=== PATIENT | male | born 2000 | race Caucasian/White ===

== ENCOUNTER 2024-07-26 08:49 | Emergency (ER) | payer MEDICAID, SELFPAY ==
[2024-07-26 09:01] VITALS: BP 110/62; PULSE 91; RESP 20; TEMP 37.2; O2SAT 96; BMI 20.3
--- NOTE | 2024-07-26 09:06 | XR_ITS ---
Examination: AP chest single view TECHNIQUE: Sitting AP chest single view Date and time: July 26, 2024 0931 hours Comparison 11/26/2016 INDICATIONS: Patient fell today with image of the chest, chest pain FINDINGS: Normal heart size No pneumothorax. Clavicles ribs appear intact IMPRESSION: No pneumothorax pulmonary contusion or hemothorax
--- NOTE | 2024-07-26 09:06 | XR_ITS ---
Examination: CT brain head without contrast. 2-D sagittal coronal reconstructions Date and time of exam:July 26, 2024 0921 hours INDICATIONS: Patient fell today with injury of the head, head pain CTDI: vol (mGy):51.5 DLP: (mGycm):1013 Technique: Multiple CT axial sections of the brain have been obtained, 5 mm slice thickness. Contrast has not been administered. 2-D sagittal, coronal reconstructions have been obtained Low dose protocols were performed. One or more of the following dose reduction techniques were used; automated exposure control, adjustment of the mA and/or KV according to patient size, use of iterative reconstruction technique. Findings: No significant ventricular enlargement. Intra-axial or extra-axial hemorrhage density is not seen. No mass effect or midline shift Basal cisterns are not remarkable. Fourth ventricle is midline. Cranial vault intact. Impression: Negative for acute hemorrhage, mass effect or midline shift
--- NOTE | 2024-07-26 09:06 | XR_ITS ---
Examination: CT lumbar spine, without contrast. 2-D sagittal reconstructions. 2-D coronal reconstructions. 3-D reconstructions. Date and time of exam:July 26, 2024 0922 hours INDICATIONS: Patient fell today with injury to the lower back, lower back pain CTDI: vol (mGy):17.1 DLP: (mGycm):605 Technique: Multiple 1.25 mm axial sections of the lumbar spine without intravenous contrast have been obtained. 2-D sagittal and coronal reconstructions have been obtained. 3-D reconstructions have been obtained. Low dose protocols were performed. One or more of the following dose reduction techniques were used; automated exposure control, adjustment of the mA and/or KV according to patient size, use of iterative reconstruction technique. Findings: Adequate alignment lumbar vertebral bodies Schmorl's node superior endplate L1 No lumbar vertebral body compression fracture No spondylolisthesis Lumbar pedicles, lamina, transverse and posterior spinous processes intact L4-L5 6 mm central right paracentral disc bulge, axial image 92 significantly indenting the thecal sac and displacing the right L5 nerve root IMPRESSION: No acute lumbar fracture L4-L5 6 mm central right paracentral disc bulge significantly indenting the thecal sac and displacing the right L5 nerve root Consider elective MRI lumbar spine without contrast follow-up
--- NOTE | 2024-07-26 09:07 | EKG_ITS ---
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
--- NOTE | 2024-07-26 09:08 | PD.EDRME ---
Rapid Medical Screening Exam RME Arrival date/time: 07/26/24 08:49 24-year-old male with no significant medical problems presents to the emergency department today stating that he was cooking today and all of a sudden collapsed patient reports since then he has been unable to walk Chief Complaint: Back Pain/Injury Vital signs: Vital Signs Temperature 98.9 F 07/26/24 09:01 Pulse Rate 91 07/26/24 09:01 Respiratory Rate 20 07/26/24 09:01 Blood Pressure 110/62 07/26/24 09:01 Pulse Oximetry (%) 96 07/26/24 09:01 Oxygen Delivery Method Room Air 07/26/24 09:01
[2024-07-26] MEDS: HYDROcodone/APAP 5/325 TABLET 1 TAB PO (09:12)
[2024-07-26] MEDS: DIAZEPAM 5 MG TABLET 10 MG PO (09:13)
[2024-07-26 09:44] LABS: Basophils % (Auto) 0 % (0-2.5); Eosinophils # (Auto) 0.1 Thou/mm3 (0.0-0.5); Eosinophils % (Auto) 2 % (0-10); Hematocrit 46.5 % (41.0-53.0); Hemoglobin 15.8 g/dL (13.5-16.0); Immature Granulocytes % (Auto) 1 % (0-0); Immature Granulocytes Auto 0.06 Thou/mm3 (0.00-0.00); Lymphocytes # (Auto) 1.5 Thou/mm3 (1.0-4.8); Lymphocytes % (Auto) 26 % (10-50); Mean Corpuscular Hemoglobin 30.4 pg (25.0-35.0); Mean Corpuscular Volume 89 fL (80-100); Monocytes # (Auto) 0.4 Thou/mm3 (0.0-0.8); Monocytes % (Auto) 8 % (0-12); Neutrophils # (Auto) 3.5 Thou/mm3 (1.8-7.7); Neutrophils % (Auto) 62 % (37-80); Nucleated Red Blood Cell % 0 /100 WBC (0); Platelet Count 307 Thou/mm3 (140-440); RDW Standard Deviation 41.2 fL (35.1-43.9); White Blood Count 5.6 Thou/mm3 (3.8-10.6)
[2024-07-26 10:03] LABS: Sed Rate (ESR) 10 mm/hr (0-15)
[2024-07-26 10:09] LABS: Alanine Aminotransferase 19 U/L (10-49); Albumin, Serum 4.6 gm/dL (3.5-5.0); Albumin/Globulin Ratio 1.8 (1.2-2.2); Alkaline Phosphatase 115 U/L (46-116); Anion Gap 11 (7-16); Aspartate Amino Transferase 15 U/L (0-34); BUN/Creatinine Ratio 11 Ratio (12-20); Bilirubin,Total 0.6 mg/dL (0.3-1.2); Blood Urea Nitrogen 11 mg/dL (9-23); Calcium 10.6 mg/dL (8.3-10.6); Calcium (Corrected) 10.6 mg/dL (8.5-10.1); Carbon Dioxide 26.5 mMol/L (20.0-31.0); Chloride 101 mMol/L (98-107); Estimated Creatinine Clearance 110.6 mL/min (>60); Globulin 2.5 gm/dL (2.3-3.5); Glucose 108 mg/dL (74-106); Osmolality,Calculated 276 (275-295); Potassium 3.8 mMol/L (3.4-5.1); Sodium 138 mMol/L (136-145); Total Protein 7.1 gm/dL (5.7-8.2); Troponin I < 0.002 ng/mL (0.0-0.045); eGFR > 60 See Note
[2024-07-26 10:24] LABS: C-Reactive Protein < 0.5 mg/dL (0.0-0.9)
[2024-07-26 11:04] VITALS: BP 135/76; PULSE 78; RESP 16; TEMP 36.6; O2SAT 96
--- NOTE | 2024-07-26 11:26 | PD.EDADULT ---
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 Patient denies fever chills numbness tingling. Patient denies bowel or bladder symptoms saddle anesthesia numbness tingling or weakness in the lower extremity. Patient is awake alert oriented nontoxic-appearing not in any acute distress complaining of site-specific pain in the low back patient denies any radiation. At the time of the exam at 1129 patient is resting comfortably, able to move the legs bilaterally sensation intact. RME / HPI RME / HPI narrative: 07/26/24 08:49 24-year-old male with no significant medical problems presents to the emergency department today stating that he was cooking today and all of a sudden collapsed patient reports since then he has been unable to walk Related Data Previous Rx's ?Medication ?Instructions ?Recorded Hydrocodone/Acetaminophen * (NORCO 1 tab PO Q6H PRN PAIN #40 tabs 11/27/16 5/325 *) acetaminophen 300 mg-codeine 30 mg 1 tab PO BID PRN pain #6 tabs 01/08/22 tablet cephalexin 500 mg capsule 500 mg PO TID #21 caps 01/08/22 cyclobenzaprine 10 mg tablet 10 mg PO TID #20 tabs 07/26/24 meloxicam 7.5 mg tablet 7.5 mg PO QDAY #10 tabs 07/26/24 prednisone 20 mg tablet See Taper PO BID 3 days #6 tabs 07/26/24 Allergies Allergy/AdvReac Type Severity Reaction Status Date / Time No Known Allergies Allergy Verified 07/26/24 08:52 Review of Systems Review of Systems Narrative Review of Systems: GEN: No fever, no chills, no weight loss EYES: No discharge, no visual changes, no pain HEENT: No ear pain, no congestion, no sore throat PULM: No shortness of breath, no cough, no congestion CV: No chest pain, no dyspnea on exertion, no palpitations GI: No nausea, no vomiting, no diarrhea, no pain, no constipation : No frequency, no urgency, no dysuria MUSC/SKEL: No joint pain, + back pain SKIN: No rash PSYCH: No hallucinations, no depression HEME/LYMPH: No easy bleeding or bruising tendencies NEURO: No weakness, no headache Past Medical History Past Medical History CARDIAC: Negative Congestive Heart Failure RESPIRATORY: Negative Chronic Obstructive Pulmonary Disease (COPD) GENITOURINARY: Negative Renal Disease ENDOCRINE: Negative Diabetes Mellitus Type 1 or Diabetes Mellitus Type 2 Social History SMOKING STATUS: Heavy (> 1 pack/day) ED Exam Narrative Physical exam: [General: In moderate discomfort but not in any acute distress Head normocephalic HEENT: Eyes pupils are PERRLA EOMs are intact mouth pink moist membranes uvula is midline swallow symmetrical although the subsystems of HEENT are within acceptable limits Neck is supple nontender Chest equal chest rise nontender to palpation Respiratory: Clear to auscultation no wheezes crackles or rubs CV: Rate rhythm is regular no murmurs rubs or clicks Abdomen is flat, soft nontender no masses positive bowel sounds all 4 quadrants Back: Left lumbar paraspinal tenderness with palpation no spinous process tenderness no tenderness to the thoracic or cervical spine process or paraspinals. Minor right lumbar paraspinal tenderness to palpation. No obvious markings rash induration ulceration or crepitus. Skin: Intact no petechiae rash induration ulceration or crepitus Extremities: Able to straight leg raise knee flex and full range ankles and toes upon command cap refill less than 2 seconds in neurosensory intact. Moving all other extremities against resistance cap refill less than 2 seconds neurosensory intact Neuro: Awake alert oriented x3 Glascow coma 15 no focal deficits] Course Course Course Narrative: Patient has full range of motion of lower extremities, does not have signs or symptoms of spinal cord impingement. At this time patient be discharged home with steroids and muscle relaxers to follow-up with his primary care provider. Patient is advised that he is recommended for an outpatient MRI for further workup. Patient also advised no heavy lifting for the next 10 days. If there is a worsening of symptoms patient is advised to return to the emergency room for reevaluation. Quality Measures none Orders Category Date Time Status EKG (ED ONLY) *Do not use* NOW Care 07/26/24 09:[address] head/brain wo con Stat Exams 07/26/24 09:[address] lumbar spine wo con Stat Exams 07/26/24 09:06 Completed EKG (ED Only) Stat Exams 07/26/24 09:07 Draft XR chest 1V portable Stat Exams 07/26/24 09:06 Completed CBC Stat Lab 07/26/24 09:28 Completed CRP [C-Reactive Protein] Stat Lab 07/26/24 09:28 Completed Comprehensive Metabolic Panel Stat Lab 07/26/24 09:28 Completed Sed Rate (ESR) Stat Lab 07/26/24 09:28 Completed Troponin I Stat Lab 07/26/24 09:28 Completed Diazepam [Valium] Med 07/26/24 09:07 Discontinued 10 mg PO X1 ONE HYDROcodone*/APAP 5/325 [[place] 5/325] Med 07/26/24 09:07 Discontinued 1 tab PO X1 ONE Vital Signs Vital signs: Vital Signs Temperature 98.9 F 07/26/24 09:01 Pulse Rate 91 07/26/24 09:01 Respiratory Rate 20 07/26/24 09:01 Blood Pressure 110/62 07/26/24 09:01 Pulse Oximetry (%) 96 07/26/24 09:01 Oxygen Delivery Method Room Air 07/26/24 09:01 Discharge Plan Plan Patient Disposition: HOME (Self Care) Patient condition on transfer: Stable Prescriptions/Referrals Prescriptions/Med Rec: New cyclobenzaprine 10 mg tablet 10 mg PO TID Qty: 20 0RF prednisone 20 mg tablet See Taper PO BID 3 Days Qty: 6 0RF Taper: Prednisone Taper 20 mg DAILY for 2 Days and 0 Hour 10 mg DAILY for 2 Days and 0 Hour 5 mg DAILY for 7 Days and 0 Hour meloxicam 7.5 mg tablet 7.5 mg PO QDAY Qty: 10 0RF No Action Hydrocodone/Acetaminophen * (NORCO 5/325 *) 1 TAB tablet 1 tab PO Q6H PRN (Reason: PAIN) Qty: 40 0RF cephalexin 500 mg capsule 500 mg PO TID Qty: 21 0RF acetaminophen-codeine 300-30 mg tablet 1 tab PO BID MDD 2 PRN (Reason: pain) Qty: 6 0RF Referrals: Gibran Marcum MD [Primary Care Provider] - In 1 week Problem List Clinical Impression: Lumbar radiculopathy Patient/Caregiver Discharge Instructions Other Activity Instructions:: Take the medication as prescribed. Avoid heavy lifting anything greater than 5 pounds for the next week or so follow-up with your primary care doctor consider an outpatient MRI. Following that consider follow-up with a compensation specialist. Education Materials: Back Safety: Lifting, Back Safety: Pushing and Pulling, Back Basics: A Healthy Spine, Common Spine and Disk Problems, ED Back Care Tips, ED Back Pain (Acute or Chronic) Print Language: Estonian Stand Alone Forms: Radha Award Info., Patient Portal Info Letter, Work/School Release PA/[employer] ATTENDANT Supervising Physician PA/AUTOMOBI[employer] SERVICE STATION ATTENDANT Supervising Physician: Kai Harrison ENP [facility] Clinical Information Provided by patient Medical Records Reviewed [facility] Meds/Rx Considered, not Ordered None Labs/Rad/Tests considered, not Ordered None Chronic Illness/Social Conditions which may negatively complicate care or outcome(s)-explain: None or not applicable EKG EKG Interpretation narrative: EKG performed at 0909 shows a ventricular rate of 91. Over 132 QRS of 98 QTc of 397 this is sinus rhythm nonspecific ST segment changes. Lab Interpretation Labs: interpreted by me Lab(s) interpretation(s): CBC shows no acute leukocytosis anemia thrombocytopenia CMP shows no significant electrolyte imbalances other than glucose of 108 no renal impairment no transaminitis or T. bili elevation Imaging Imaging interpretation: interpreted by me Provider imaging interpretation(s): CT head and C-spine as interpreted by me read by radiology negative for any acute finding CT of the lumbar spine shows L4-5 6 mm central right paracentral disc bulge significantly indenting the thecal sac and displacing the right L5 nerve root. This as interpreted by radiology Medication Administration(s) none Medication Administration History Discontinued Medications Hydrocodone Bitart/Acetaminophen (Hydrocodone/Apap 5/325 Tablet) 1 tab PO X1 ONE Stop: 07/26/24 09:08 Last Admin: 07/26/24 09:12 Dose: 1 tab Documented By: KRIS Diazepam (Diazepam 5 Mg Tablet) 10 mg PO X1 ONE Stop: 07/26/24 09:08 Last Admin: 07/26/24 09:13 Dose: 10 mg Documented By: KRIS Diagnosis Differential diagnosis: Syncope closed head injury neck fracture lumbar fracture Dispositon Disposition: Discharge Home
[2024-07-26 12:02] VITALS: BP 132/80; PULSE 78; RESP 16; TEMP 36.6; O2SAT 98
== END 2024-07-26 12:03 | disposition home or self-care (01) ==
PROVIDERS: Nurse Practitioner Primary Care; Emergency Provider Family Medicine; PCP Family Medicine
DX: S39.92XA Unspecified injury of lower back, initial encounter (principal); M51.16 Intervertebral disc disorders with radiculopathy, lumbar region; S09.90XA Unspecified injury of head, initial encounter; R07.9 Chest pain, unspecified; R94.31 Abnormal electrocardiogram [ECG] [EKG]; W19.XXXA Unspecified fall, initial encounter; Y93.G3 Activity, cooking and baking
CPT/HCPCS: 36415; 70450; 71045; 72131; 80053; 84484; 85025; 85652; 86140; 93005; 99284; A9270